=== PATIENT | female | born 1965 | race Two or more races ===

== ENCOUNTER 2020-10-11 15:15 | Emergency (ER) | payer OTHER ==
[~2020-10-11] VITALS: Ht 160 cm; Wt 66.3 kg
--- NOTE | 2020-10-11 15:25 | NUR ---
CONGRESSIONAL AIDE: CALLED PT FOR ROOM, NO ANSWER
[2020-10-11 16:28] LABS: MICROSCOPIC INDICATED
[2020-10-11 16:31] LABS: BASOPHILS % (AUTO) 1 % (0-1); EOSINOPHILS % (AUTO) 1 % (1-7); LYMPHOCYTES % (AUTO) 29 % (22-44); MEAN CORPUSCULAR HEMOGLOBIN 29.5 pg (27.0-34.8); MEAN CORPUSCULAR HGB CONC 33.3 g/dL (32.4-35.8); MEAN PLATELET VOLUME 7.3 fL (7.4-10.4); MONOCYTES % (AUTO) 7 % (2-9); NEUTROPHILS % (AUTO) 64 % (42-75); PLATELET COUNT 245 x10^3/uL (130-400); RED BLOOD COUNT 4.83 x10^6/uL (3.82-5.3); RED CELL DISTRIBUTION WIDTH 13.6 % (9.6-15.2)
[2020-10-11 16:34] LABS: MD NO
[2020-10-11 16:41] LABS: ALBUMIN 4.1 g/dL (3.4-5.0); ANION GAP 3 mmol/L (5-15); CALCIUM 9.2 mg/dL (8.5-10.1); CHLORIDE 108 mmol/L (98-107)
[2020-10-11 16:46] LABS: ALANINE AMINOTRANSFERASE 22 U/L (12-78); ALKALINE PHOSPHATASE 90 U/L (45-117); BILIRUBIN,TOTAL 0.4 mg/dL (0.2-1.0); CREATININE 0.65 mg/dL (0.55-1.02); TOTAL PROTEIN 7.7 g/dL (6.4-8.2)
[2020-10-11] MEDS ORDERED: OMNIPAQUE 350 MG/ML, 100ML BOTTLE ONE (18:18)
[2020-10-11 18:31] VITALS: BP 106/62
--- NOTE | 2020-10-11 18:32 | NUR ---
BREAK RN: PT RESTING COMFORTABLY ON GURNEY. NADN. RESP EVEN AND UNLABORED.
== END 2020-10-11 18:57 | disposition home or self-care (01) ==
LOC: ED 18:15
DX: R10.31 Right lower quadrant pain (principal); R19.7 Diarrhea, unspecified; R11.0 Nausea; E78.5 Hyperlipidemia, unspecified; Z90.49 Acquired absence of other specified parts of digestive tract
CPT/HCPCS: 36415; 74177; 80053; 81001; 83690; 85025; 99285; Q9967